=== PATIENT | male | born 1980 | race African-American/Black ===

== ENCOUNTER 2021-01-11 14:14 | Emergency (ER) | payer SELFPAY ==
[~2021-01-11] VITALS: Ht 175.3 cm; Wt 106.8 kg
[2021-01-11] MEDS ORDERED: IV NORMAL SALINE 1,000ML 1,000 ML IV ONE (14:45)
--- NOTE | 2021-01-11 14:47 | PHYS DOC ---
Past History Past Surgical History: No Surgical History Alcohol Use: None Social History Narrative: former General Adult EDM: Chief Complaint: OVERDOSE HPI: HPI: Patient is a [age] year old [sex] who presents with [] Review of Systems: Review of Systems: Constitutional: Denies fever or chills Eyes: Denies redness or eye pain HENT: Denies nasal congestion or sore throat Respiratory: Denies cough or shortness of breath Cardiovascular: Denies chest pain or palpitations GI: Denies abdominal pain, nausea, or vomiting : Denies dysuria or hematuria Musculoskeletal: Denies back pain or joint pain Integument: Denies rash or skin lesions Neurologic: Denies headache, focal weakness or sensory changes Complete systems were reviewed and found to be within normal limits, except as documented in this note. Current Medications: Current Meds: Current Medications Medications (Trade) Dose Ordered Sig/Riya Start Time Stop Time Status Last Admin Dose Admin Sodium Chloride 1,000 ml @ 1,000 mls/hr 1X ONCE 01/11/21 14:45 01/11/21 15:44 Allergies: Allergies: Allergies Coded Allergies Type Severity Reaction Last Updated Verified No Known Drug Allergies 01/11/21 No Physical Exam: PE: Constitutional: Well developed, well nourished, no acute distress, non-toxic appearance HENT: Normocephalic, atraumatic Eyes: PERRL, EOMI, conjunctiva normal, no discharge Neck: Normal range of motion, no tenderness, supple Lungs & Thorax: No respiratory distress, equal chest rise and fall Abdomen: Soft, no tenderness Skin: Warm, dry, no erythema, no rash Back: No tenderness, no CVA tenderness Extremities: No tenderness, ROM intact, no edema Neurologic: Alert and oriented X 3, normal motor function, normal sensory function, no focal deficits noted Psychologic: Affect normal, judgment normal Current Patient Data: Vital Signs: Vital Signs Date Time Temp Pulse Resp B/P (MAP) Pulse Ox O2 Delivery O2 Flow Rate FiO2 01/11/21 14:15 98.2 109 23 139/98 (112) 98 Room Air EKG: EKG: @1420 Sinus tachycardia at 101bpm, NO ST elevation, QRS 102ms, QT/QTc 336/436ms Radiology/Procedures: Radiology/Procedures: PROCEDURE: PORTABLE CHEST 1V XR CHEST 1V CLINICAL INDICATIONS: Reason: syncope / Spl. Instructions: / History: COMPARISON: None available. Findings: No acute lung infiltrate or pleural effusion or pulmonary edema or lung mass or pneumothorax is seen. Small air bubble along the right side of the heart may represent a hiatal hernia. The heart size, pulmonary vasculature, mediastinum and both [place] are otherwise unremarkable. IMPRESSION: No acute radiographic abnormality is seen. Small hiatal hernia. Electronically signed by: Gonsalo Starks MD (01/11/2021 3:01 PM) [id number] PROCEDURE: CT HEAD WO CONTRAST EXAMINATION: CT head without IV contrast. INDICATION:40 years, Male, syncope. COMPARISON: None TECHNIQUE: Spiral acquisition of contiguous images from the skull base to the vertex were obtained. Sagittal and coronal 2D reformatted series were provided by the technologist. Soft tissue and bone window algorithms were reviewed. Exposure: One or more of the following individualized dose reduction techniques were utilized for this examination: 1. Automated exposure control 2. Adjustment of the mA and/or kV according to patient size 3. Use of iterative reconstruction technique. FINDINGS: Neither mass, midline shift, intracranial hemorrhage, acute/subacute ischemic changes, nor extraaxial fluid collections are seen. The brain parenchyma is n ormal in appearance. The ventricles are normal in size. The paranasal sinuses, mastoid air cells, and middle ears are clear.The orbital contents appear within normal limits. IMPRESSION: No acute intracranial abnormality. Electronically signed by: Poncho Quinteros MD (01/11/2021 3:26 PM) [facility] Heart Score: C/O Chest Pain: N/A Course & Med Decision Making: Course & Med Decision Making Pertinent Labs and Imaging studies reviewed. (See chart for details) Patient stable for discharge with outpatient follow-up with PCP. Discussed findings and plan with patient, who acknowledges understanding and agreement. Dragon Disclaimer: Dragbaldomero Disclaimer: This electronic medical record was generated, in whole or in part, using a voice recognition dictation system. Departure Departure: Impression: Primary Impression: Syncope Qualified Codes: R55 - Syncope and collapse Disposition: HOME / SELF CARE / HOMELESS Condition: STABLE Referrals: PCP,NO (PCP) Patient Instructions: Syncope, [id number] Additional Instructions: Increase fluid hydration MAN BARRON DO Jan 11, 2021 14:47
[2021-01-11 15:02] LABS: BASO % 1 % (0-3); EOS # 0.1 x10^3/uL (0.0-0.7); EOS % 1 % (0-3); HEMATOCRIT 47.3 % (39.0-53.0); HEMOGLOBIN 15.7 g/dL (13.0-17.5); LYMPH # 1.8 x10^3/uL (1.0-4.8); LYMPH % 27 % (24-48); MEAN CORPUSCULAR HEMOGLOBIN 29 pg (25-35); MEAN CORPUSCULAR HGB CONC 33 g/dL (31-37); MEAN CORPUSCULAR VOLUME 86 fL (79-100); MONO # 1.3 x10^3/uL (0.0-1.1); MONO % 19 % (0-9); NEUT # 3.6 x10^3uL (1.8-7.7); NEUT % 53 % (31-73); PLATELET COUNT 259 x10^3/uL (140-400); RED CELL DISTRIBUTION WIDTH 15.3 % (11.5-14.5); WHITE BLOOD COUNT 6.8 x10^3/uL (4.0-11.0)
--- NOTE | 2021-01-11 15:04 | RAD ---
XR CHEST 1V CLINICAL INDICATIONS: Reason: syncope / Spl. Instructions: / History: COMPARISON: None available. Findings: No acute lung infiltrate or pleural effusion or pulmonary edema or lung mass or pneumothora x is seen. Small air bubble along the right side of the heart may represent a hiatal hernia. The hear t size, pulmonary vasculature, mediastinum and both [place] are otherwise unremarkable. IMPRESSION: No acute radiographic abnormality is seen. Small hiatal hernia. Electronically signed by: Gonsalo Starks MD (01/11/2021 3:01 PM) [id number]
[2021-01-11 15:11] LABS: CREATININE 1.3 mg/dL (0.7-1.3); GFR 60.5; POTASSIUM 3.6 mmol/L (3.5-5.1)
[2021-01-11 15:27] LABS: ALBUMIN 4.2 g/dL (3.4-5.0); ALBUMIN/GLOBULIN RATIO 1.1 (1.0-1.7); MAGNESIUM 2.4 mg/dL (1.8-2.4); TOTAL BILIRUBIN 0.2 mg/dL (0.2-1.0); TOTAL PROTEIN 8.2 g/dL (6.4-8.2)
--- NOTE | 2021-01-11 15:29 | RAD ---
EXAMINATION: CT head without IV contrast. INDICATION:40 years, Male, syncope. COMPARISON: None TECHNIQUE: Spiral acquisition of contiguous images from the skull base to the vertex were obtained. S agittal and coronal 2D reformatted series were provided by the technologist. Soft tissue and bone win fer algorithms were reviewed. Exposure: One or more of the following individualized dose reduction techniques were utilized for thi s examination: 1. Automated exposure control 2. Adjustment of the mA and/or kV according to patient size 3. Use of iterative reconstruction technique. FINDINGS: Neither mass, midline shift, intracranial hemorrhage, acute/subacute ischemic changes, nor extraaxial fluid collections are seen. The brain parenchyma is normal in appearance. The ventricles are normal in size. The paranasal sinuses, mastoid air cells, and middle ears are clear.The orbital contents appear withi n normal limits. IMPRESSION: No acute intracranial abnormality. Electronically signed by: Poncho Quinteros MD (01/11/2021 3:26 PM) [facility]
[2021-01-11 16:00] VITALS: BP 125/89
--- NOTE | 2021-01-12 02:48 | EKG ---
[address] [address] Test Date: 2021-01-11 Test Time: 14:20:13 Pat Name: YULI De La Paz Department: Room: Gender: M Ict Quality Assurance Engineer: SAMANTHA : 1980 Requested By: MAN BARRON Order Number: [id number] Reading MD: Measurements Intervals Arp Rate: 101 P: -15 MI: 182 QRS: 50 QRSD: 102 T: 12 QT: 336 QTc: 436 Interpretive Statements SINUS TACHYCARDIA LEFT ATRIAL ABNORMALITY ABNORMAL ECG RI6.02 No previous ECG available for comparison
== END 2021-01-11 16:38 | disposition home or self-care (01) ==
LOC: ER 14:14
DX: R55 Syncope and collapse (principal)
CPT/HCPCS: 36415; 70450; 71045; 80053; 82553; 83605; 83735; 84484; 85025; 93005; 99285; J7030